=== PATIENT | female | born 1945 | race Two or more races ===

== ENCOUNTER 2018-02-15 08:09 | Outpatient (CLI) | payer OTHER | END 2018-02-15 08:18 | disposition home or self-care (01) | LOC: TOM 08:09 | DX: K56.600 Partial intestinal obstruction, unspecified as to cause (principal); K56.50 Intestinal adhesions [bands], unspecified as to partial versus complete obstruction; R19.8 Other specified symptoms and signs involving the digestive system and abdomen; R53.0 Neoplastic (malignant) related fatigue ==

== ENCOUNTER 2018-10-02 08:56 | Outpatient (CLI) | payer OTHER | END 2018-10-02 09:01 | disposition home or self-care (01) | LOC: SONOGRAMA 08:56 | DX: E04.2 Nontoxic multinodular goiter (principal) ==